=== PATIENT | female | born 1955 | race Caucasian/White ===

== ENCOUNTER 2021-01-09 16:09 | Emergency (ER) | payer MEDICARE, OTHER ==
[~2021-01-09] VITALS: Ht 160 cm; Wt 68.1 kg
[2021-01-09] MEDS ORDERED: IV NORMAL SALINE 1,000ML 1,000 ML IV ONE (16:15)
--- NOTE | 2021-01-09 16:26 | EKG ---
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
--- NOTE | 2021-01-09 16:34 | PHYS DOC ---
Past History Past Medical History: A-Fib, CAD, Renal Failure (on HD M/W/F), Seizure Past Surgical History: Other Additional Past Surgical Histo: fistula right arm Smoking: Non-smoker Alcohol Use: None Drug Use: None General Adult EDM: Chief Complaint: SYNCOPE HPI: HPI: 65-year-old female presents via EMS with report of syncopal episode at home. Patient has past medical history of end-stage renal disease on dialysis Thursday/Thursday/Thursday. Patient reports she was unable to attend dialysis on Thursday secondary to her fistula having an issue. Patient did attend dialysis just prior to this episode and reports they took off "2 L ". Patient reports feeling lightheaded and subsequently passing out upon standing. Patient did strike front of her face with laceration. Patient does report use of Eliquis blood thinner. Patient reports last tetanus booster less than 5 years ago. Review of Systems: Review of Systems: Constitutional: Denies fever or chills Eyes: Denies redness or eye pain HENT: Denies nasal congestion or epistaxis Respiratory: Denies cough or shortness of breath Cardiovascular: Denies chest pain or palpitations GI: Denies abdominal pain, nausea, or vomiting : Denies dysuria or hematuria Musculoskeletal: Denies back pain or joint pain Integument: Reports laceration to upper lip just below nose Neurologic: Denies headache, focal weakness or sensory changes; reports lighth eadedness and syncopal episode Complete systems were reviewed and found to be within normal limits, except as documented in this note. Current Medications: Current Meds: Current Medications Medications (Trade) Dose Ordered Sig/[facility] Start Time Stop Time Status Last Admin Dose Admin Lidocaine/ Epinephrine (Xylocaine 2%-Epi 1:100,000) 20 ml 1X ONCE 01/09/21 16:30 01/09/21 16:31 UNV Neomycin/ Polymyxin/ Bacitracin (Triple Antibiotic Ointment) 1 pkt 1X ONCE 01/09/21 16:30 01/09/21 16:31 UNV Sodium Chloride 500 ml @ 0 mls/hr 1X ONCE 01/09/21 16:30 01/09/21 16:31 UNV Allergies: Allergies: Allergies Coded Allergies Type Severity Reaction Last Updated Verified lisinopril Allergy Unknown 01/09/21 Yes Physical Exam: PE: Constitutional: Well developed, well nourished, no acute distress, non-toxic appearance HENT: Normocephalic, atraumatic Eyes: PERRL, EOMI, conjunctiva normal, no discharge, no nystagmus Neck: Normal range of motion, no tenderness, supple Lungs & Thorax: No respiratory distress, equal chest rise and fall Abdomen: Soft, no tenderness Skin: Warm, dry, no erythema, 2cm laceration to upper lip without crossing vermilion border, no mucosal injury noted, teeth intact. Back: No tenderness, no CVA tenderness Extremities: No tenderness, ROM intact, no edema Neurologic: Alert and oriented X 3, normal motor function, normal sensory function, no focal deficits noted Psychologic: Affect normal, judgment normal Current Patient Data: Vital Signs: Vital Signs Date Time Temp Pulse Resp B/P (MAP) Pulse Ox O2 Delivery O2 Flow Rate FiO2 01/09/21 16:18 97.0 83 16 147/66 (93) 95 Room Air EKG: EKG: @1620 NSR at 85bpm, NO ST elevation, QRS 98ms, QT/QTc 406/483ms Radiology/Procedures: Radiology/Procedures: PROCEDURE: CHEST AP ONLY XR CHEST 1V CLINICAL INDICATIONS: Reason: syncope / Spl. Instructions: / History: COMPARISON: None available. Findings: Old granulomatous disease is seen. No acute lung infiltrate or pleural effusion or pulmonary edema or lung mass or pneumothorax is seen. Cardiomegaly is evident with a bipolar atrioventricular pacemaker in place. The pulmonary vasculature, mediastinum and both marcos are unremarkable. IMPRESSION: Cardiomegaly. No acute lung infiltrate. Electronically signed by: Arnel Ashraf MD (01/09/2021 5:12 PM) [id number] PROCEDURE: CT HEAD AND CERVICAL SPINE WO Examination: CT head and cervical spine without contrast CT HEAD INDICATION: Reason: syncope, fall COMPARISON: None Available. Exposure: One or more of the following individualized dose reduction techniques were utilized for this examination: 1. Automated exposure control 2. Adjustment of the mA and/or kV according to patient size 3. Use of iterative reconstruction technique TECHNIQUE: 5 mm contiguous axial images were obtained from the skull base to the vertex in both bone and soft tissue algorithm. FINDINGS: Mild bilateral periventricular white matter hypodensities likely chronic small vessel ischemic disease. Mild soft tissue swelling identified in the right forehead region likely secondary to injury. No evidence of acute intracranial hemorrhage. No extra-axial fluid collections. No mass effect or midline shift. Ventricular size is appropriate. Basal cisterns are patent. No fractures identified.Alvarez-white differentiation is preserved.Globes and orbits are within normal limits. Paranasal sinuses and mastoid air cells are clear. CT CERVICAL SPINE INDICATION: Reason: syncope / Spl. Instructions: / History: COMPARISON: None Available. Technique: 2.5 mm contiguous axial images were obtained from the skull base through the cervicothoracic junction in both bone and soft tissue algorithm. Additional sagittal and coronal reconstructions were also performed. FINDINGS: Vertebral body height and alignment are maintained. Cervical lordosis is preserved. The lateral masses of C1 are aligned upon C2. No fractures identified. The bony canal is patent throughout. Moderate intervertebral disc height loss identified in cervical spine most at C5-C6 vertebral levels with small anterior and posterior osteophyte formation. The paraspinous soft tissues are unremarkable. Visualized intracranial contents are unremarkable. Lung apices are clear. IMPRESSION: 1. No acute intracranial findings. Mild soft tissue swelling identified in the right forehead region likely secondary to injury. 2. No acute fracture cervical spine. 3. Moderate degenerative changes cervical spine. Electronically signed by: Itz Gabriel MD (01/09/2021 5:17 PM) UICRAD Heart Score: C/O Chest Pain: N/A Course & Med Decision Making: Course & Med Decision Making Pertinent Labs and Imaging studies reviewed. (See chart for details) Patient presents with report of syncopal episode at home. Patient did strike mouth with subsequent small laceration that does not cross vermilion border nor does it go to mucosal surface. Patient reports tetanus booster within the last 5 years. Patient is currently neurologically intact. Patient might have had syncopal episode secondary to increased removal of 2 L at hemodialysis today. Patient does report use of Eliquis blood thinner. CT head/cervical spine therefore obtained with findings without acute process. Chest x-ray stable. EKG also stable. Labs obtained and posted to chart. Troponin slightly elevated which is likely secondary to renal disease. Repeat troponin at similar level. Patient does deny chest pain. Patient requiring transfer to [facility] for admission due to need for nephrology consultation for hemodialysis and for further evaluation and treatment. Discussed with Dr. Bennett (hospitalist) who is in agreement with admission. Discussed findings and plan with patient, who acknowledges understanding and agreement. Thierry Disclaimer: Thierry Disclaimer: This electronic medical record was generated, in whole or in part, using a voice recognition dictation system. Laceration/Wound Repair Laceration/Wound Repair : Wound Location: face (Upper lip) Wound's Depth, Shape: superficial, linear Wound Length (cm): 2 Wound Explored: clean Irrigated w/ Saline (ccs): 500 Anesthesia: Lidocaine w/ Epi (2%) Volume Anesthetic (ccs): 1 Wound Debrided: minimal Wound Repaired With: sutures Suture Size/Type: 6:0, nylon Number of Sutures: 2 Layer Closure?: No Sterile Dressing Applied?: Yes Progress Verbal consent obtained. Time out performed. Hand hygiene utilized. Wound cleaned with ChloraPrep. Anesthesia obtained via a 30-gauge hypodermic needle wi th (1) mL's of lidocaine 2% with epinephrine. Copious irrigation performed. Wound well approximated with 2x 6-0 Nylon simple interrupted sutures. Patient tolerated procedure well and without difficulty. Empiric antibiotic ointment applied prior to sterile dressing. Departure Departure: Impression: Primary Impression: Syncope Qualified Codes: R55 - Syncope and collapse Additional Impressions: Elevated troponin History of end stage renal disease Disposition: 02 [facility] ([facility]- Dr. Bennett (hospitalist) accepting) Condition: GUARDED Critical Care Time Critical care time was 30 minutes which includes time at bedside, spent in discussion of patient's care with specialists and/or family members, with interpretation of laboratory and/or radiological studies and is exclusive of procedures. JAMEY SINGH DO Jan 09, 2021 16:34
[2021-01-09] MEDS: NEOMY/BACITR/POLYMYXIN OINT PACKET. TP ONE (17:03)
[2021-01-09] MEDS: LIDOCAINE 2%/EPI 1:100,000 20 ML VIAL. IJ ONE (17:03)
[2021-01-09] MEDS: IV NORMAL SALINE 500ML 500 ML IV ONE (17:04)
[2021-01-09 17:08] LABS: BASO % 0 % (0-3); EOS % 0 % (0-3); HEMATOCRIT 27.3 % (36.0-47.0); LYMPH # 0.9 x10^3/uL (1.0-4.8); LYMPH % 11 % (24-48); MEAN CORPUSCULAR HEMOGLOBIN 34 pg (25-35); MEAN CORPUSCULAR HGB CONC 33 g/dL (31-37); MEAN CORPUSCULAR VOLUME 104 fL (79-100); MONO # 1.1 x10^3/uL (0.0-1.1); MONO % 12 % (0-9); NEUT # 6.6 x10^3uL (1.8-7.7); NEUT % 77 % (31-73); PLATELET COUNT 178 x10^3/uL (140-400); RED BLOOD COUNT 2.63 x10^6/uL (3.50-5.40); RED CELL DISTRIBUTION WIDTH 16.4 % (11.5-14.5); WHITE BLOOD COUNT 8.7 x10^3/uL (4.0-11.0)
--- NOTE | 2021-01-09 17:14 | RAD ---
XR CHEST 1V CLINICAL INDICATIONS: Reason: syncope / Spl. Instructions: / History: COMPARISON: None available. Findings: Old granulomatous disease is seen. No acute lung infiltrate or pleural effusion or pulmonar y edema or lung mass or pneumothorax is seen. Cardiomegaly is evident with a bipolar atrioventricular pacemaker in place. The pulmonary vasculature, mediastinum and both marcos are unremarkable. IMPRESSION: Cardiomegaly. No acute lung infiltrate. Electronically signed by: Arnel Ashraf MD (01/09/2021 5:12 PM) [id number]
--- NOTE | 2021-01-09 17:19 | RAD ---
Examination: CT head and cervical spine without contrast CT HEAD INDICATION: Reason: syncope, fall COMPARISON: None Available. Exposure: One or more of the following individualized dose reduction techniques were utilized for thi s examination: 1. Automated exposure control 2. Adjustment of the mA and/or kV according to patient size 3. Use of iterative reconstruction technique TECHNIQUE: 5 mm contiguous axial images were obtained from the skull base to the vertex in both bone and soft tissue algorithm. FINDINGS: Mild bilateral periventricular white matter hypodensities likely chronic small vessel ischemic diseas e. Mild soft tissue swelling identified in the right forehead region likely secondary to injury. No evidence of acute intracranial hemorrhage. No extra-axial fluid collections. No mass effect or midline shift. Ventricular size is appropriate. Basal cisterns are patent. No fractures identified.Alvarez-white differentiation is preserved.Globes and orbits are within normal l imits. Paranasal sinuses and mastoid air cells are clear. CT CERVICAL SPINE INDICATION: Reason: syncope / Spl. Instructions: / History: COMPARISON: None Available. Technique: 2.5 mm contiguous axial images were obtained from the skull base through the cervicothorac ic junction in both bone and soft tissue algorithm. Additional sagittal and coronal reconstructions were also performed. FINDINGS: Vertebral body height and alignment are maintained. Cervical lordosis is preserved. The l ateral masses of C1 are aligned upon C2. No fractures identified. The bony canal is patent throughout. Moderate intervertebral disc height loss identified in cervical spine most at C5-C6 vertebral levels with small anterior and posterior osteophyte formation. The paraspinous soft tissues are unremarkable. Visualized intracranial contents are unremarkable. L magan apices are clear. IMPRESSION: 1. No acute intracranial findings. Mild soft tissue swelling identified in the right forehead region likely secondary to injury. 2. No acute fracture cervical spine. 3. Moderate degenerative changes cervical spine. Electronically signed by: Itz Gabriel MD (01/09/2021 5:17 PM) [id number]
[2021-01-09 17:20] LABS: CALCIUM 8.3 mg/dL (8.5-10.1); CREATININE 5.2 mg/dL (0.6-1.0); GFR 8.3
[2021-01-09 17:44] LABS: ALBUMIN 2.7 g/dL (3.4-5.0); ALBUMIN/GLOBULIN RATIO 0.6 (1.0-1.7); MAGNESIUM 1.8 mg/dL (1.8-2.4); TOTAL BILIRUBIN 0.3 mg/dL (0.2-1.0); TOTAL PROTEIN 7.1 g/dL (6.4-8.2)
[2021-01-09] MEDS: ASPIRIN ENTERIC COATED 325 MG TABLET.DR. PO ONE (19:30)
[2021-01-09 22:32] VITALS: BP 134/61
== END 2021-01-09 23:03 | disposition short-term general hospital (02) ==
LOC: ER 16:09
DX: S01.511A Laceration without foreign body of lip, initial encounter (principal); R77.8 Other specified abnormalities of plasma proteins; N18.6 End stage renal disease; Z99.2 Dependence on renal dialysis; R55 Syncope and collapse; I48.91 Unspecified atrial fibrillation; I25.10 Atherosclerotic heart disease of native coronary artery without angina pectoris; Z20.822 Contact with and (suspected) exposure to COVID-19; Z88.8 Allergy status to other drugs, medicaments and biological substances; X58.XXXA Exposure to other specified factors, initial encounter; Y93.89 Activity, other specified; Y92.89 Other specified places as the place of occurrence of the external cause; Y99.8 Other external cause status
CPT/HCPCS: 12011; 36415; 70450; 71045; 72125; 80053; 82553; 83735; 84484; 85025; 87426; 93005; 96360; 96361; 99285; C9803; J7040; U0003